=== PATIENT | female | born 1950 | race Caucasian/White ===

== ENCOUNTER 2018-05-18 07:10 | Day surgery (SDC) | payer OTHER ==
[~2018-05-18] VITALS: Ht 165.1 cm; Wt 74.9 kg
[~2018-05-18 07:10] MED LIST: GLUCHON PO; Multivitamin1 EAC1 PO; OXYACE5T PO
== END 2018-05-18 09:30 | disposition home or self-care (01) ==
LOC: ORSCSDS 07:10
PROVIDERS: Internal Medicine Gastroenterology
PROC: 0DJD8ZZ Inspection of Lower Intestinal Tract, Via Natural or Artificial Opening Endoscopic (ICD-10-PCS; principal; 2018-05-18 08:45)
DX: Z12.11 Encounter for screening for malignant neoplasm of colon (principal); K57.30 Diverticulosis of large intestine without perforation or abscess without bleeding; K64.4 Residual hemorrhoidal skin tags; K64.8 Other hemorrhoids
CPT/HCPCS: J7120

== ENCOUNTER 2018-09-19 16:48 | Emergency (ER) | payer OTHER ==
[~2018-09-19] VITALS: Ht 162.6 cm; Wt 74.8 kg
== END 2018-09-19 18:06 | disposition home or self-care (01) ==
LOC: ER 16:48
DX: M25.532 Pain in left wrist (principal); Z88.8 Allergy status to other drugs, medicaments and biological substances; W19.XXXA Unspecified fall, initial encounter
CPT/HCPCS: 29125; 73110; 99283-25

== ENCOUNTER 2020-06-19 17:00 | Inpatient (IN) | payer OTHER, MEDICARE ==
[~2020-06-19] VITALS: Ht 165.1 cm; Wt 77.1 kg
[2020-06-19 17:43] LABS: Hematocrit 35.2 % (33.0-51.0); Hemoglobin 11.7 g/dL (11.5-16.0); Mean Corpuscular HGB 29.8 pg (26.0-34.0); Mean Corpuscular HGB Conc 33.2 g/dL (31.5-36.5); Mean Corpuscular Volume 90 fL (80-100); Mean Platelet Volume 9.5 fL (9.1-12.4); Platelet Count 259 K/mm3 (150-400); RDW Coefficient Variation 14.5 % (11.7-14.2); RDW Standard Deviation 47.7 fL (35.1-46.3); Red Blood Cell Count 3.92 M/mm3 (3.80-5.20); White Blood Cell Count 33.41 K/mm3 (4.00-11.30)
[2020-06-19 17:59] LABS: Albumin/Globulin Ratio 0.5 (0.8-1.8); Bilirubin, Total 1.1 mg/dL (0.1-1.0); Bun/Creatinine Ratio 29.2 (12.0-20.0); Calcium, Blood 9.6 mg/dL (8.5-10.1); Creatinine, Blood 1.92 mg/dL (0.40-1.00); Globulin, Blood 4.3 g/dL (2.2-4.0); Potassium, Blood 4.5 mmol/L (3.5-5.5); Total Protein, Blood 6.3 g/dL (6.4-8.2)
[2020-06-19 18:27] LABS: BAND PERCENT MAN 4 % (0-8); BASOPHILS PERCENT MAN 0 % (0-2); EOSINOPHILS PERCENT MAN 0 % (0-6); LYMPHOCYTES ABSOLUTE MAN 1.33 K/mm3 (0.84-5.20); LYMPHOCYTES PERCENT MAN 4 % (21-46); MONOCYTES ABSOLUTE MAN 1.33 K/mm3 (0.16-1.47); MONOCYTES PERCENT MAN 4 % (4-13); NEUTROPHILS ABSOLUTE MAN 30.73 K/mm3 (1.96-9.15); SEG NEUTROPHILS PERCENT MAN 88 % (41-73); TOTAL CELLS COUNTED 100
[2020-06-19 21:44] LABS: Adenovirus Not Detected (NOT DETECT); Bordetella pertussis Not Detected (NOT DETECT); Chlamydophila pneumoniae Not Detected (NOT DETECT); Coronavirus 229E Not Detected (NOT DETECT); Coronavirus HKU1 Not Detected (NOT DETECT); Coronavirus NL63 Not Detected (NOT DETECT); Coronavirus OC43 Not Detected (NOT DETECT); Human Metapneumovirus Not Detected (NOT DETECT); Human Rhinovirus/Enterovirus Not Detected (NOT DETECT); Influenza A/2009-H1 Not Detected (NOT DETECT); Influenza A/H1 Not Detected (NOT DETECT); Influenza A/H3 Not Detected (NOT DETECT); Influenza B Not Detected (NOT DETECT); Mycoplasma pneumoniae Not Detected (NOT DETECT); Parainfluenza Virus 1 Not Detected (NOT DETECT); Parainfluenza Virus 2 Not Detected (NOT DETECT); Parainfluenza Virus 3 Not Detected (NOT DETECT); Parainfluenza Virus 4 Not Detected (NOT DETECT); Respiratory Syncytial Virus Not Detected (NOT DETECT); SARS-Cov-2 (COVID-19), BioFire Not Detected (NOT DETECT)
--- NOTE | 2020-06-20 03:43 | NUR ---
SHIFT SUMMARY PT ER ADMIT THIS SHIFT FOR SEPSIS/PNA. PT HAS BEEN STARTED ON ABX AND IS CURRENTLY RECEIVING IV FLUIDS. BLOOD CULTURES PENDING AT THIS TIME. PT LUNGS ARE DIMINSHED AND TIGHT. SHE REPORTS PAIN WITH INSPIRATION. COUGH NON PRODUCTIVE. PT MEDICATED FOR PLEURITIC PAIN WITH EFFECT. PT HAS BEEN INDEPENDENT IN THE ROOM. NSR ON TELE. SHE HAS RESTED MOST OF THE SHIFT. ADMISSION COMPLETE. BED IN LOWEST POSITION, CALL LIGHT WITHIN REACH.
[2020-06-20 04:14] LABS: Hematocrit 33.6 % (33.0-51.0); Hemoglobin 10.9 g/dL (11.5-16.0); Mean Corpuscular HGB 29.5 pg (26.0-34.0); Mean Corpuscular HGB Conc 32.4 g/dL (31.5-36.5); Mean Corpuscular Volume 91 fL (80-100); Mean Platelet Volume 9.3 fL (9.1-12.4); Platelet Count 222 K/mm3 (150-400); RDW Coefficient Variation 14.5 % (11.7-14.2); Red Blood Cell Count 3.69 M/mm3 (3.80-5.20); White Blood Cell Count 29.36 K/mm3 (4.00-11.30)
[2020-06-20 04:32] LABS: Albumin, Blood 1.5 g/dL (3.4-5.0); Albumin/Globulin Ratio 0.4 (0.8-1.8); Bun/Creatinine Ratio 30.4 (12.0-20.0); Calcium, Blood 8.5 mg/dL (8.5-10.1); Creatinine, Blood 1.68 mg/dL (0.40-1.00); Globulin, Blood 3.6 g/dL (2.2-4.0); Potassium, Blood 4.5 mmol/L (3.5-5.5); Total Protein, Blood 5.1 g/dL (6.4-8.2)
[2020-06-20 05:37] LABS: BAND PERCENT MAN 3 % (0-8); BASOPHILS PERCENT MAN 0 % (0-2); EOSINOPHILS PERCENT MAN 0 % (0-6); LYMPHOCYTES ABSOLUTE MAN 1.17 K/mm3 (0.84-5.20); LYMPHOCYTES PERCENT MAN 4 % (21-46); MONOCYTES ABSOLUTE MAN 0.88 K/mm3 (0.16-1.47); MONOCYTES PERCENT MAN 3 % (4-13); SEG NEUTROPHILS PERCENT MAN 90 % (41-73); TOTAL CELLS COUNTED 100
--- NOTE | 2020-06-20 16:38 | NUR ---
eCHOCARDIOGRAM performed by patti Clayton under my supervision.
--- NOTE | 2020-06-20 17:09 | NUR ---
SHIFT SUMMARY PT ALERT AND ORIENTED. VS STABLE. 02 SATS REMAIN ABOVE 90% ON 2L NC. BP STABLE. HR NSR. PT DENIES ANY PAIN THIS SHIFT. PT HAVING PRODUCTIVE COUGH WTIH SPUTUM SAMPLE SENT TO LAB. NS INFUSING PER ORDERS. PT ABLE TO AMBULATE INDEPENDENTLY. WILL CONTINUE TO MONITOR AND REPORT TO ONCOMING RN. CALL LIGHT IN REACH. PT CALLING APPROPRIATELY.
--- NOTE | 2020-06-20 19:16 | NUR ---
ASSUMED PT CARE REPORT FROM LELAND LY AT 1900. ASSUMED PT CARE. PT ALERT AND ORIENTED, PLEASANT AND COOPERATIVE. PT C/O RIGHT FLANK PAIN R/T PNEUMONIA AND COUGH. PT HAS 20G TO LEFT AC WITH NS INFUSING @ 75ML/HR, DRESSING C/D/I. PT ON 2L O2 PER NC, SATS >90%, PT HAS FREQUENT PRODUCTIVE COUGH. WHEEZES NOTED TO RIGHT MID AND LOWER LOBE, DIMINISHED THROUGHOUT. PT DENIES CP, TELE SHOWS NSR RATE IN 80'S, BP STABLE, PULSES STRONG AND EQUAL. SKIN OVERALL C/D/I. PT MOVES INDEPENDENTLY. PT REPORTS POOR APPETITE TODAY WITH SOME NAUSEA, RESOLVED NOW. PT DRINKS WATER AND TAKES MEDS WHOLE. CALL LIGHT IN REACH. SEE FULL SHIFT ASSESSMENT.
[2020-06-21 04:01] LABS: BASOPHILS ABSOLUTE AUTO 0.16 K/mm3 (0.00-0.23); BASOPHILS PERCENT AUTO 1 % (0-2); Hematocrit 31.2 % (33.0-51.0); Hemoglobin 10.1 g/dL (11.5-16.0); LYMPHOCYTES ABSOLUTE AUTO 0.91 K/mm3 (0.84-5.20); LYMPHOCYTES PERCENT AUTO 5 % (21-46); MONOCYTES ABSOLUTE AUTO 1.65 K/mm3 (0.16-1.47); MONOCYTES PERCENT AUTO 9 % (4-13); Mean Corpuscular HGB 29.4 pg (26.0-34.0); Mean Corpuscular HGB Conc 32.4 g/dL (31.5-36.5); Mean Corpuscular Volume 91 fL (80-100); Mean Platelet Volume 9.8 fL (9.1-12.4); Platelet Count 204 K/mm3 (150-400); RDW Coefficient Variation 14.7 % (11.7-14.2); RDW Standard Deviation 48.7 fL (35.1-46.3); Red Blood Cell Count 3.44 M/mm3 (3.80-5.20); White Blood Cell Count 18.07 K/mm3 (4.00-11.30)
[2020-06-21 04:04] LABS: EOSINOPHILS ABSOLUTE AUTO 0.07 K/mm3 (0.00-0.68); EOSINOPHILS PERCENT AUTO 0 % (0-6); IMMATURE GRAN ABSOLUTE AUTO 1.87 K/mm3 (0.00-0.10); IMMATURE GRAN PERCENT AUTO 10 % (0-1); NEUTROPHILS ABSOLUTE AUTO 13.41 K/mm3 (1.96-9.15); NEUTROPHILS PERCENT AUTO 74 % (41-73)
[2020-06-21 04:19] LABS: Albumin, Blood 1.4 g/dL (3.4-5.0); Albumin/Globulin Ratio 0.4 (0.8-1.8); Bilirubin, Total 1.2 mg/dL (0.1-1.0); Bun/Creatinine Ratio 32.6 (12.0-20.0); Creatinine, Blood 1.41 mg/dL (0.40-1.00); Globulin, Blood 3.5 g/dL (2.2-4.0); Magnesium, Blood 1.9 mg/dL (1.6-2.4); Potassium, Blood 4.1 mmol/L (3.5-5.5); Total Protein, Blood 4.9 g/dL (6.4-8.2)
[2020-06-21 04:29] LABS: BAND PERCENT MAN 4 % (0-8); BASOPHILS ABSOLUTE MAN 0.18 K/mm3 (0.00-0.23); BASOPHILS PERCENT MAN 1 % (0-2); EOSINOPHILS PERCENT MAN 0 % (0-6); LYMPHOCYTES ABSOLUTE MAN 1.44 K/mm3 (0.84-5.20); LYMPHOCYTES PERCENT MAN 8 % (21-46); METAMYELOCYTE ABSOLUTE MAN 0.54 K/mm3 (0.00-0.00); METAMYELOCYTE PERCENT MAN 3 % (0-0); MONOCYTES ABSOLUTE MAN 0.72 K/mm3 (0.16-1.47); MONOCYTES PERCENT MAN 4 % (4-13); NEUTROPHILS ABSOLUTE MAN 15.17 K/mm3 (1.96-9.15); SEG NEUTROPHILS PERCENT MAN 80 % (41-73); TOTAL CELLS COUNTED 100
--- NOTE | 2020-06-21 05:46 | NUR ---
SHIFT SUMMARY PT HAD GOOD SHIFT, PT REMAINS ALERT AND ORIENTED X4, INDPENDENT IN ROOM FOR THE MOST PART. PT USES CALL LIGHT APPROPRIATELY. PT REMAINS ON 2L O2 PER NC, SATS >92%. PT HAS 20G TO LEFT AC WITH NS INFUSUNG AT 75ML/HR (FOR 2L, 2 LITER INFUSING NOW), SITE WNL, DRESSING C/D/I. PT LUNGS CLEAR TO UPPER MAYA, WHEEZY AND DIMINISHED TO BASES. PT HAS GREAT PRODUCTIVE COUGH AND IS ABLE TO MOVE AIR. PT URIEL CP, BP WNL. LABS SHOW IMPROVING WBC. SKIN C/D/I. WILL REPORT TO ONCOMING SHIFT.
--- NOTE | 2020-06-21 08:00 | NUR ---
RT in room providing treatments. pt a/0 x 4, pleasant/cooperative, bed in lowest position, bed rails up x 2, call light within reach, pt sitting at bedside
--- NOTE | 2020-06-21 11:49 | NUR ---
removed telemetry following DC order. awaiting medical floor bed for transfer
--- NOTE | 2020-06-21 16:43 | NUR ---
called report to ALIYAH Conde on medical floor. pt will be transferred on her own bed to room 355. notified pt of this
--- NOTE | 2020-06-21 17:07 | NUR ---
RECEIVED PT TO RM 355 VIA W/C FROM PCU 6. PT ADMITTED WITH RLL PNM. A&O, INDEPENDENT IN RM. PT ON 2L NC; BASELINE RA. IV TO LAC INFUSING ZOSYN COMING TO RM. REQUESTED EXTRA PILLOWS AND PAIN MEDICATION FOR BACK. NORCO GIVEN PER EMAR. PT REPORTED TOO MUCH TIME IN BED. OFFERED TO ASSIST TO CHAIR. PT DECLINED AT THIS TIME. RECEIVED REPORT FROM KO LY. PT DENIED FURTHER NEEDS. NO S/SX OF DISTRESS NOTED OR REPORTED. CALL LT IN REACH.
--- NOTE | 2020-06-22 04:57 | NUR ---
BESSEMER BOTTOM MAKER SUMMARY ALERT AND ORIENTED. INDEPENDENT IN ROOM. APPEARED TO SLEEP T/O NIGHT. DENIES PAIN OR NAUSEA AT THIS TIME. RIGHT LOBE WHEEZES NOTED UPON AUSCULTATION. CURRENTLY ON 3L 02 VIA [place]. RT AT BEDSIDE FOR BT. VSS. BED IN LOWEST POSITION WITH CALL LIGHT IN REACH. WILL CONTINUE TO MONITOR AND REPORT TO ONCOMING RN.
[2020-06-22 05:03] LABS: BASOPHILS ABSOLUTE AUTO 0.13 K/mm3 (0.00-0.23); BASOPHILS PERCENT AUTO 1 % (0-2); Hematocrit 31.6 % (33.0-51.0); Hemoglobin 10.2 g/dL (11.5-16.0); LYMPHOCYTES ABSOLUTE AUTO 0.96 K/mm3 (0.84-5.20); LYMPHOCYTES PERCENT AUTO 6 % (21-46); MONOCYTES ABSOLUTE AUTO 1.73 K/mm3 (0.16-1.47); MONOCYTES PERCENT AUTO 11 % (4-13); Mean Corpuscular HGB 29.7 pg (26.0-34.0); Mean Corpuscular HGB Conc 32.3 g/dL (31.5-36.5); Mean Corpuscular Volume 92 fL (80-100); Mean Platelet Volume 9.9 fL (9.1-12.4); Platelet Count 225 K/mm3 (150-400); RDW Coefficient Variation 14.8 % (11.7-14.2); RDW Standard Deviation 50.3 fL (35.1-46.3); Red Blood Cell Count 3.43 M/mm3 (3.80-5.20); White Blood Cell Count 15.62 K/mm3 (4.00-11.30)
[2020-06-22 05:04] LABS: EOSINOPHILS ABSOLUTE AUTO 0.06 K/mm3 (0.00-0.68); EOSINOPHILS PERCENT AUTO 0 % (0-6); IMMATURE GRAN ABSOLUTE AUTO 2.17 K/mm3 (0.00-0.10); IMMATURE GRAN PERCENT AUTO 14 % (0-1); NEUTROPHILS ABSOLUTE AUTO 10.57 K/mm3 (1.96-9.15); NEUTROPHILS PERCENT AUTO 68 % (41-73)
[2020-06-22 05:16] LABS: Albumin, Blood 1.3 g/dL (3.4-5.0); Albumin/Globulin Ratio 0.3 (0.8-1.8); Bilirubin, Total 1.2 mg/dL (0.1-1.0); Bun/Creatinine Ratio 26.4 (12.0-20.0); Calcium, Blood 8.2 mg/dL (8.5-10.1); Creatinine, Blood 1.1 mg/dL (0.40-1.00); Globulin, Blood 3.8 g/dL (2.2-4.0); Potassium, Blood 4.2 mmol/L (3.5-5.5); Total Protein, Blood 5.1 g/dL (6.4-8.2)
[2020-06-22 05:19] LABS: BAND PERCENT MAN 2 % (0-8); BASOPHILS PERCENT MAN 0 % (0-2); EOSINOPHILS PERCENT MAN 0 % (0-6); LYMPHOCYTES ABSOLUTE MAN 1.24 K/mm3 (0.84-5.20); LYMPHOCYTES PERCENT MAN 8 % (21-46); METAMYELOCYTE ABSOLUTE MAN 0.62 K/mm3 (0.00-0.00); METAMYELOCYTE PERCENT MAN 4 % (0-0); MONOCYTES PERCENT MAN 9 % (4-13); MYELOCYTE ABSOLUTE MAN 0.15 K/mm3 (0.00-0.00); MYELOCYTE PERCENT MAN 1 % (0-0); NEUTROPHILS ABSOLUTE MAN 12.18 K/mm3 (1.96-9.15); SEG NEUTROPHILS PERCENT MAN 76 % (41-73); TOTAL CELLS COUNTED 100
--- NOTE | 2020-06-22 13:46 | NUR ---
SHIFT SUMMARY PT AWAKE AT START OF SHIFT, SITTING UP TO EOB. RT IN FOR TX'S. PT IMPROVING SLOWLY. LUNGS T/O COARSE WITH EXP WHEEZES AND PC. PT DECLINED BOWEL CARE, REPORTING LOOSE STOOLS. BOWEL CARE CHANGED TO PRN. DR NANCE IN TO SEE PT, WELL DR ANDRADE. NEW ORDERS PLACED. PT TO BE NPO FOR BREAKFAST, EXCEPT WATER AND ICE CHIPS AND THEN NPO AT 1400 FOR EGD. PT AWARE. INDEPENDENT IN RM. UP TO SHOWER LATER IN AM. SITTING TO EOB, LEANING OVER BS TABLE D/T BACK PAIN FROM LAYING IN BED. PT THEN REQUESTED TO SIT UP TO CHAIR AT BS. DENIED FURTHER NEEDS. CALL LT IN REACH.
--- NOTE | 2020-06-23 04:08 | NUR ---
SHIFT SUMMARY ALERT, ABLE TO MAKE NEEDS KNOWN. COOPERATIVE WITH CARE. CALLS AND ANSWERS QUESTIONS APPROPRIATELY. C/O PAIN/DISCOMFORT TO BACK; MEDICATED PER EMAR. INDEPENDENT IN ROOM. APPEARED TO REST OFF AND ON. RT REMAINS INVOLVED IN CARE. CHEST PHISIOTHERAPY AND BT. REMAINS ON 2L VIA NC. VSS/AFEBRILE. NO ACUTE CHANGES NOTED OVERNIGHT. BED REMAINS IN LOWEST POSITION. CALL LIGHT AND BELONINGS WITHIN REACH. WCTM. REPORT TO ONCOMING RN.
[2020-06-23 04:51] LABS: BASOPHILS ABSOLUTE AUTO 0.11 K/mm3 (0.00-0.23); BASOPHILS PERCENT AUTO 1 % (0-2); Hematocrit 30.2 % (33.0-51.0); Hemoglobin 9.6 g/dL (11.5-16.0); LYMPHOCYTES ABSOLUTE AUTO 1.02 K/mm3 (0.84-5.20); LYMPHOCYTES PERCENT AUTO 7 % (21-46); MONOCYTES ABSOLUTE AUTO 1.78 K/mm3 (0.16-1.47); MONOCYTES PERCENT AUTO 12 % (4-13); Mean Corpuscular HGB 29.3 pg (26.0-34.0); Mean Corpuscular HGB Conc 31.8 g/dL (31.5-36.5); Mean Corpuscular Volume 92 fL (80-100); Mean Platelet Volume 10.2 fL (9.1-12.4); Platelet Count 219 K/mm3 (150-400); RDW Coefficient Variation 14.6 % (11.7-14.2); RDW Standard Deviation 49.7 fL (35.1-46.3); Red Blood Cell Count 3.28 M/mm3 (3.80-5.20); White Blood Cell Count 14.38 K/mm3 (4.00-11.30)
[2020-06-23 04:53] LABS: EOSINOPHILS PERCENT AUTO 1 % (0-6); IMMATURE GRAN ABSOLUTE AUTO 1.91 K/mm3 (0.00-0.10); IMMATURE GRAN PERCENT AUTO 13 % (0-1); NEUTROPHILS ABSOLUTE AUTO 9.46 K/mm3 (1.96-9.15); NEUTROPHILS PERCENT AUTO 66 % (41-73)
[2020-06-23 05:11] LABS: BAND PERCENT MAN 1 % (0-8); BASOPHILS ABSOLUTE MAN 0.14 K/mm3 (0.00-0.23); BASOPHILS PERCENT MAN 1 % (0-2); EOSINOPHILS PERCENT MAN 0 % (0-6); LYMPHOCYTES PERCENT MAN 7 % (21-46); METAMYELOCYTE ABSOLUTE MAN 0.28 K/mm3 (0.00-0.00); METAMYELOCYTE PERCENT MAN 2 % (0-0); MONOCYTES ABSOLUTE MAN 1.15 K/mm3 (0.16-1.47); MONOCYTES PERCENT MAN 8 % (4-13); MYELOCYTE ABSOLUTE MAN 0.28 K/mm3 (0.00-0.00); MYELOCYTE PERCENT MAN 2 % (0-0); SEG NEUTROPHILS PERCENT MAN 79 % (41-73); TOTAL CELLS COUNTED 100
[2020-06-23 05:21] LABS: Albumin, Blood 1.3 g/dL (3.4-5.0); Anion Gap 6 mmol/L (6-16); Blood Urea Nitrogen 24 mg/dL (8-24); Bun/Creatinine Ratio 24.9 (12.0-20.0); CO2, Blood 24 mmol/L (21-32); Chloride, Blood 109 mmol/L (98-108); Creatinine, Blood 0.96 mg/dL (0.40-1.00); Glomerular Filtration Rate >60 (60-); Glucose, Blood 118 mg/dL (70-99); Phosphorus, Blood 3.2 mg/dL (2.5-4.9); Potassium, Blood 4.1 mmol/L (3.5-5.5); Sodium, Blood 139 mmol/L (136-145)
--- NOTE | 2020-06-23 15:24 | NUR ---
06/23/20 1524 SARVAANAN OLIVAS History, Chart, Medications and Allergies reviewed before start of procedure. 3-LEAD EKG REVIEWED WITH PHYSICIAN PRIOR TO START OF PROCEDURE. O2 VIA N/C INTACT THROUGHOUT SEDATION/PROCEDURE. MONITOR INTACT WITH CONTINUOUS PULSE OXIMETRY AND INTERMITTENT BP. PATIENT DETERMINED TO BE ASA APPROPRIATE FOR PROPOFOL SEDATION PRIOR TO START OF PROCEDURE BY DR. ANDRADE.
--- NOTE | 2020-06-23 17:09 | NUR ---
SHIFT SUMMARY PT IS AOX4; CALLS APPROPRIATELY AND INDEPENDENT IN THE ROOM. SON AT THE BEDSIDE. PT HAD EGD DONE TODAY ABOUT 1500. VSS. NO OTHER ACUTE CHANGES OTHER THAN MEDICATED THE PT FOR PAIN FOR HER BACK. BED IS IN THE LOWEST POSITION; CALL LIGHTS WITHIN REACH AND WILL CONT MONITOR.
--- NOTE | 2020-06-23 17:52 | NUR ---
PT BACK IN THE ROOM AND RECEIVED REPORT @ BEDSIDE AT 1600.
--- NOTE | 2020-06-24 05:38 | NUR ---
SUSTAINABLE AGRICULTURE SPECIALIST SUMMARY PT AAOX4 AND INDEPENDENT IN ROOM. GIVEN PO LASIX AT START OF SHIFT TO HELP WITH BLE EDEMA. GIVEN NORCO AT START OF SHIFT FOR CHRONIC BACK PAIN. PT ON 2L O2 VIA NC. HACK HACKING COUGH THAT IS DRY MOST OF THE TIME. CRACKLES STILL NOTED ON RLL. PT HAS SPENT MOST OF THE NIGHT SLEEPING IN THE RECLINER. WILL CONTINUE TO MONITOR.
[2020-06-24 05:44] LABS: Hematocrit 31.3 % (33.0-51.0); Mean Corpuscular HGB 29.4 pg (26.0-34.0); Mean Corpuscular HGB Conc 31.9 g/dL (31.5-36.5); Mean Corpuscular Volume 92 fL (80-100); Mean Platelet Volume 9.7 fL (9.1-12.4); Platelet Count 294 K/mm3 (150-400); RDW Coefficient Variation 14.5 % (11.7-14.2); RDW Standard Deviation 49.1 fL (35.1-46.3); White Blood Cell Count 12.26 K/mm3 (4.00-11.30)
[2020-06-24 06:14] LABS: BAND PERCENT MAN 3 % (0-8); BASOPHILS PERCENT MAN 0 % (0-2); EOSINOPHILS PERCENT MAN 0 % (0-6); LYMPHOCYTES PERCENT MAN 9 % (21-46); METAMYELOCYTE ABSOLUTE MAN 0.73 K/mm3 (0.00-0.00); METAMYELOCYTE PERCENT MAN 6 % (0-0); MONOCYTES ABSOLUTE MAN 1.34 K/mm3 (0.16-1.47); MONOCYTES PERCENT MAN 11 % (4-13); NEUTROPHILS ABSOLUTE MAN 9.07 K/mm3 (1.96-9.15); SEG NEUTROPHILS PERCENT MAN 71 % (41-73); TOTAL CELLS COUNTED 100
--- NOTE | 2020-06-24 16:41 | NUR ---
Shift Summary A/Ox4, pleasant and cooperative with care. Up independently in room, calls appropriately for needs. Denies pain today. Temp has been between 100-100.6, patient refusing Tylenol per Dr. Phipps's recommendations to let temperature assist with infection, will continue to monitor this. Room temp turned down, blankets removed. Possibility of discharging tomorrow. No acute changes, will continue to monitor.
--- NOTE | 2020-06-25 04:07 | NUR ---
SHIFT SUMMARY ADMITTED FOR SEPSIS (RLL PNEUMONIA). FULL CODE. UPPER ENDO PERFORMED BY DR ANDRADE. HOPEFUL FOR DC TODAY. IV ANTIBIOTICS WILL BE SWITCHED TO PO FOR DC. LOW GRADE FEVERS HAVE BEEN PERMITTED. SHE IS INDEPENDENT IN ROOM. NO NEW CONCERNS THIS SHIFT.
[2020-06-25 04:37] LABS: BASOPHILS ABSOLUTE AUTO 0.09 K/mm3 (0.00-0.23); BASOPHILS PERCENT AUTO 1 % (0-2); EOSINOPHILS ABSOLUTE AUTO 0.08 K/mm3 (0.00-0.68); EOSINOPHILS PERCENT AUTO 1 % (0-6); Hematocrit 30.6 % (33.0-51.0); Hemoglobin 9.8 g/dL (11.5-16.0); IMMATURE GRAN ABSOLUTE AUTO 0.76 K/mm3 (0.00-0.10); IMMATURE GRAN PERCENT AUTO 8 % (0-1); LYMPHOCYTES ABSOLUTE AUTO 1.17 K/mm3 (0.84-5.20); LYMPHOCYTES PERCENT AUTO 12 % (21-46); MONOCYTES ABSOLUTE AUTO 1.22 K/mm3 (0.16-1.47); MONOCYTES PERCENT AUTO 13 % (4-13); Mean Corpuscular HGB 29.5 pg (26.0-34.0); Mean Corpuscular Volume 92 fL (80-100); Mean Platelet Volume 9.8 fL (9.1-12.4); NEUTROPHILS ABSOLUTE AUTO 6.44 K/mm3 (1.96-9.15); NEUTROPHILS PERCENT AUTO 66 % (41-73); Platelet Count 254 K/mm3 (150-400); RDW Coefficient Variation 14.4 % (11.7-14.2); RDW Standard Deviation 48.7 fL (35.1-46.3); Red Blood Cell Count 3.32 M/mm3 (3.80-5.20); White Blood Cell Count 9.76 K/mm3 (4.00-11.30)
[2020-06-25 04:57] LABS: BAND PERCENT MAN 4 % (0-8); BASOPHILS ABSOLUTE MAN 0.09 K/mm3 (0.00-0.23); BASOPHILS PERCENT MAN 1 % (0-2); EOSINOPHILS ABSOLUTE MAN 0.09 K/mm3 (0.00-0.68); EOSINOPHILS PERCENT MAN 1 % (0-6); LYMPHOCYTES ABSOLUTE MAN 0.97 K/mm3 (0.84-5.20); LYMPHOCYTES PERCENT MAN 10 % (21-46); METAMYELOCYTE ABSOLUTE MAN 0.19 K/mm3 (0.00-0.00); METAMYELOCYTE PERCENT MAN 2 % (0-0); MONOCYTES ABSOLUTE MAN 0.78 K/mm3 (0.16-1.47); MONOCYTES PERCENT MAN 8 % (4-13); MYELOCYTE ABSOLUTE MAN 0.09 K/mm3 (0.00-0.00); MYELOCYTE PERCENT MAN 1 % (0-0); NEUTROPHILS ABSOLUTE MAN 7.51 K/mm3 (1.96-9.15); SEG NEUTROPHILS PERCENT MAN 73 % (41-73); TOTAL CELLS COUNTED 100
[2020-06-25] MEDS ORDERED: ACET325 PO (11:56)
[2020-06-25] MEDS ORDERED: FURO20 PO (11:58)
[2020-06-25] MEDS ORDERED: LEVO750 PO (12:00)
[2020-06-25] MEDS ORDERED: Florastor250 MG PO (12:00)
--- NOTE | 2020-06-25 15:38 | NUR ---
Discharge Summary Patient discharging to home. Reviewed discharge paperwork with patient, copy provided. No questions at this time. Portable O2 tank has been delivered with nasal cannula, instructions provided by gauger delivery. IV removed, WNL. Personal belongings sent home. Will be escorted by discharge volunteer and transported home by family via personal vehicle. No acute changes this shift, has been pleasant t/o day. Denies pain, sob. Home O2 eval completed.
== END 2020-06-25 15:44 | disposition home or self-care (01) | DRG 871 ==
LOC: ER 17:00 → PCU 21:08 → MEDS 21:08 → PCU 21:41 → MEDS 06-21 16:59 → ENPENDDIS 06-25 14:11 → MEDS 06-25 15:44
PROVIDERS: Family Medicine; Internal Medicine; Internal Medicine Gastroenterology; Physician Assistant; ADMIT Internal Medicine
PROC: 0DB68ZX Excision of Stomach, Via Natural or Artificial Opening Endoscopic, Diagnostic (ICD-10-PCS; principal; 2020-06-23 14:00)
DX: A40.3 Sepsis due to Streptococcus pneumoniae (principal); J15.4 Pneumonia due to other streptococci; R65.20 Severe sepsis without septic shock; J96.01 Acute respiratory failure with hypoxia; N17.9 Acute kidney failure, unspecified; Z20.828 Contact with and (suspected) exposure to other viral communicable diseases; I35.0 Nonrheumatic aortic (valve) stenosis; K21.9 Gastro-esophageal reflux disease without esophagitis; D63.8 Anemia in other chronic diseases classified elsewhere
CPT/HCPCS: 0202U; 36415; 71260; 80053; 80069; 82947; 83605; 83735; 85025; 87040; 87070; 87186; 87205; 88305; 88342; 93306; 94640; 94667; 94668; 94760; 94761; 96365-59; 96366; 96375-59; 99285-25; A9270; A9270-GY; C9113; J0696; J1650; J2250; J2543; J2704; J7030; J7120; Q9967

== ENCOUNTER → 2023-05-31 | Outpatient (CLI) | payer OTHER ==
[~2023-05-31] MED LIST changes: +ACET325 PO; +FURO20 PO; +Florastor250 MG PO; +LEVO750 PO
[2023-05-31 16:57] LABS: Magnesium, Blood 2.5 mg/dL (1.6-2.4)
== END | disposition home or self-care (01) ==
LOC: LAB 15:08 → LAB SHORT 15:08
PROVIDERS: Family Medicine
DX: M13.0 Polyarthritis, unspecified (principal)
CPT/HCPCS: 82550; 83735; 85651; 86038; 86430